=== PATIENT | female | born 2000 | race Two or more races ===

== ENCOUNTER 2024-12-19 18:53 | Emergency (ER) | payer OTHER, SELFPAY ==
[2024-12-19 19:22] VITALS: BP 137/83; PULSE 125; RESP 20; TEMP 38; O2SAT 96
--- NOTE | 2024-12-19 19:31 | PD.EDRME ---
Rapid Medical Screening Exam RME Arrival date/time: 12/19/24 18:53 24 year old female present to ED for c/o n/v for 2 days I have greeted and performed a focused initial assessment of this patient. A comprehensive ED assessment and evaluation of the patient, analysis of all test results, and completion of the medical decision making process will be conducted by additional ED providers. Chief Complaint: Flu Like Symptoms Time Seen by Provider: 12/19/24 19:03 Vital signs: Vital Signs Temperature 100.4 F 12/19/24 19:22 Pulse Rate 125 H 12/19/24 19:22 Respiratory Rate 20 12/19/24 19:22 Blood Pressure 137/83 H 12/19/24 19:22 Pulse Oximetry (%) 96 12/19/24 19:22 Oxygen Delivery Method Room Air 12/19/24 19:22
[2024-12-19 19:45] VITALS: TEMP 38
[2024-12-19] MEDS: ACETAMINOPHEN 500 MG TABLET 1000 MG PO (19:45)
[2024-12-19] MEDS: ONDANSETRON ODT 4 MG TABRAP PO (19:45)
[2024-12-19 20:08] LABS: Basophils % (Auto) 0 % (0-2.5); Eosinophils % (Auto) 0 % (0-10); Hematocrit 38.3 % (36.0-46.0); Hemoglobin 12.8 g/dL (12.0-16.0); Immature Granulocytes % (Auto) 0 % (0-0); Immature Granulocytes Auto 0.02 Thou/mm3 (0.00-0.00); Lymphocytes # (Auto) 0.8 Thou/mm3 (1.0-4.8); Lymphocytes % (Auto) 13 % (10-50); Mean Corpuscular HGB Conc 33.4 g/dl (31.0-37.0); Mean Corpuscular Hemoglobin 28.1 pg (25.0-35.0); Mean Corpuscular Volume 84 fL (80-100); Monocytes # (Auto) 0.4 Thou/mm3 (0.0-0.8); Monocytes % (Auto) 6 % (0-12); Neutrophils # (Auto) 5.3 Thou/mm3 (1.8-7.7); Neutrophils % (Auto) 81 % (37-80); Nucleated Red Blood Cell % 0 /100 WBC (0); Platelet Count 229 Thou/mm3 (140-440); RDW Standard Deviation 43.6 fL (36.4-46.3); Red Blood Count 4.56 Miln/mm3 (4.00-5.20); White Blood Count 6.5 Thou/mm3 (3.6-11.0)
[2024-12-19] MEDS: SODIUM CHLORIDE 0.9% 1000 ML 1,000 ML 999 ML IV (20:20)
[2024-12-19 20:28] LABS: Alanine Aminotransferase 23 U/L (10-49); Albumin, Serum 4.7 gm/dL (3.5-5.0); Albumin/Globulin Ratio 1.8 (1.2-2.2); Alkaline Phosphatase 85 U/L (46-116); Anion Gap 8 (7-16); Aspartate Amino Transferase 22 U/L (0-34); BUN/Creatinine Ratio 8 Ratio (12-20); Bilirubin,Total 0.7 mg/dL (0.3-1.2); Blood Urea Nitrogen 6 mg/dL (9-23); Calcium 8.7 mg/dL (8.3-10.6); Calcium (Corrected) 8.7 mg/dL (8.5-10.1); Carbon Dioxide 25.5 mMol/L (20.0-31.0); Chloride 103 mMol/L (98-107); Creatinine (Component) 0.8 mg/dL (0.6-1.3); Globulin 2.6 gm/dL (2.3-3.5); Glucose 101 mg/dL (74-106); Lipase 31 U/L (12-53); Osmolality,Calculated 269 (275-295); Potassium 3.5 mMol/L (3.4-5.1); Sodium 136 mMol/L (136-145); Total Protein 7.3 gm/dL (5.7-8.2); eGFR > 60 See Note
[2024-12-19 20:46] LABS: Collection Type, Urine Voided
[2024-12-19 20:55] LABS: Bilirubin,Urine Negative (Negative); Blood,Urine Negative (Negative); Clarity,Urine Clear (Clear/Hazy); Color,Urine Lt-Yellow (Lt Yel-Yel); Glucose, Urine Negative (Negative); Ketones,Urine Negative (Negative); Leukocyte Esterase,Urine Negative (Negative); Nitrite,Urine Negative (Negative); PH,Urine 7.5 (5.0-7.0); Protein,Urine Negative (Neg - Trace); RBC,Urine 1 /hpf (0-3); Specific Gravity,Urine 1.009 (1.001-1.035); Squamous Epithelial Cell,Urine 5 /hpf (0-5); Urobilinogen,Urine Negative mg/dL (0.0-1.0); WBC,Urine 1 /hpf (0-5)
--- NOTE | 2024-12-19 20:56 | EDNOTE_ITS ---
ED Abdominal Pain RME/HPI General Chief Complaint: Flu Like Symptoms Stated complaint: V/D X2 DAYS FEVER, MUSCLE ACHES Time seen by provider: 12/19/24 19:03 Arrival date/time: 12/19/24 18:53 24 year old female present to emergency room with c/o of nausea,vomiting abdominal cramping for 2days. patient report possible food poisoning. LOCATION: generalized periumbical abdominal pain SEVERITY: Symptoms are described as being severe with limitations on activities of daily living QUALITY: Symptoms are described as being cramping CONTEXT: The patient is unable to identify any inciting events. DURATION/TIMING: The symptoms started approximately 2 day ago and have been constant this then, and have been progressive getting worse. ASSOCIATED SYMPTOMS: The patient is unable to identify any other associated symptoms. MODIFYING FACTORS: The patient is unable to identify any alleviating or aggravating symptoms. PERTINENT ROS: reports emesis is nonbloody, diarrhea is nonbloody, no recent foreign travel, no recent ingestion of raw seafood or meat, no head trauma, no headache, no chest pain, no orthostatis symptoms, denies any focal abdominal pain, denies any toxicological ingestions REVIEW OF SYSTEMS: See History of Present Illness - with the exception of those mentioned in the history of present illness, all other systems reviewed and reported as negative GENERAL: In general the patient is awake, interactive, in an emergency department gurney. HEAD/EYES/EARS/NOSE/THROAT: normo-cephalic, atraumatic, mucus membranes are moist, anicteric, palpebral conjunctiva is pink, trachea is midline. CARDIOVASCULAR: regular rate and regular rhythm, no murmurs, heart sounds are not distant, strong pulses in all four extremities that are equal and symmetric bilateral upper and lower extremities, normal capillary refill. CHEST/PULMONARY: normal chest rise and fall, good air movement, clear to auscultation bilaterally, normal inspiratory to expiratory ratios without evidence of respiratory distress. NECK: No midline/Paraspinal tenderness, no step off ROM/Strenght intact No Kernig and bruzinski sign. No trauma ABDOMEN: soft, not tender, no masses appreciated BACK: normal range of motion without pain. NEUROLOGICAL: cranio-facial features are symmetric, moves all four extremities equally without obvious limitations or weakness. EXTREMITY: no tenderness to palpation over the long bones or large joints of the bilateral upper and lower extremities, no joint swelling, no joint erythema, no signs of trauma, no unilateral leg swelling and no peripheral edema. SKIN: warm, dry, well-perfused, no jaundice, no rash, no telangiectasias or petechia. PSYCH: calm, cooperative, no evidence of psychosis or agitation RME / HPI RME / HPI narrative: 12/19/24 18:53 24 year old female present to ED for c/o n/v for 2 days I have greeted and performed a focused initial assessment of this patient. A comprehensive ED assessment and evaluation of the patient, analysis of all test results, and completion of the medical decision making process will be conducted by additional ED providers. Related Data Previous Rx's ?Medication ?Instructions ?Recorded ondansetron 4 mg disintegrating 4 mg PO Q8H PRN nausea and 12/19/24 tablet vomiting #20 tabs Allergies Allergy/AdvReac Type Severity Reaction Status Date / Time Penicillins Allergy Rash Verified 12/19/24 18:56 Course Course Course Narrative: Patient presenting with nausea, vomiting, and diarrhea.? Vital signs were reviewed.? Patient afebrile.? Abdominal exam is benign.? No evidence of acute surgical emergency or infection requiring antibiotics.? I considered biliary disease, bowel obstruction, colitis, mesenteric ischemia, appendicitis, urinary tract infection, infectious diarrhea, however, these are less likely given the history and exam.? While in ED patient was provided with IV fluids, zofran , at which point patient stated that their symptoms had improved. Provided with prescription for zofran? Advised to continue Ibuprofen and Tylenol at home as needed for pain/fever. Patient is to followup with primary physician if symptoms continue. Advised to return to the ER if concern for inability to tolerate PO intake, dehydration, or other concerns. Plan:?? Discharge from ETC Ibuprofen/Acetaminophen for Pain/Fever Prescription for ondansetron for nausea. Pt was advised on supportive therapies, including increasing dietary fiber, eating smaller meals, refrain from eating copious amounts of irritating foods (fatty foods, milk products, chocolate, and caffeine), maintaining a food diary, advancing fluids as tolerated, refraining from EtOH consumption, decreasing stress, and increasing exercise. Maintain Fluid Intake: Pedialyte/Gatorade, Juice, Non-caffeinated Pop (Sprite) Patient to follow up with PCP or in ER should symptoms worsen or not improve. Patient verbally expressed understanding and all questions were addressed. Quality Measures none Orders Category Date Time Status Bedside COVID-19 Antigen Test NOW Care 12/19/24 19:30 Active Bedside Influenza A&B Antigen Test NOW Care 12/19/24 19:30 Completed IV [Insert IV] STAT Care 12/19/24 19:30 Active CBC Stat Lab 12/19/24 19:55 Completed CMP [Comprehensive Metabolic Panel] Stat Lab 12/19/24 19:55 Completed HCG,Qualitative Serum Stat Lab 12/19/24 19:55 Completed Lipase Stat Lab 12/19/24 19:55 Completed UA [Urinalysis] Stat Lab 12/19/24 20:26 Completed Acetaminophen Tab [Tylenol ES Tab] Med 12/19/24 19:30 Discontinued 1,000 mg PO X1 ONE Ondansetron Odt [Zofran Odt] Med 12/19/24 19:30 Discontinued 4 mg PO X1 ONE Sodium Chloride 0.9% 1000 ml [Ns] 1,000 ml Med 12/19/24 19:31 Discontinued IV 999 mls/hr Vital Signs Vital signs: Vital Signs Temperature 100.4 F 12/19/24 19:22 Pulse Rate 125 H 12/19/24 19:22 Respiratory Rate 20 12/19/24 19:22 Blood Pressure 137/83 H 12/19/24 19:22 Pulse Oximetry (%) 96 12/19/24 19:22 Oxygen Delivery Method Room Air 12/19/24 19:22 Abdominal Pain MDM Patient data External records reviewed:: [facility] previous records Clinical information provided by:: patient Social determinants that could affect healthcare access:: none Patient has the following chronic illnesses:: n/a How is presenting disease/condition affected by chronic disease/condition?: no chronic disease Evaluation data The following diagnostics were reviewed and interpreted by me:: lab results Lab and/or radiology exams considered but not ordered:: n/a Interpretation Summary: cbc/cmp/urine, hcg, covid.flu negative Medications / Prescriptions Medications or Prescriptions considered but not ordered:: n/a Medication administrations:: Medication Administration History Discontinued Medications Acetaminophen (Acetaminophen 500 Mg Tablet) 1,000 mg PO X1 ONE Stop: 12/19/24 19:31 Last Admin: 12/19/24 19:45 Dose: 1,000 mg Documented By: Sodium Chloride (Ns) 1,000 mls @ 999 mls/hr IV .Q1H1M ONE Stop: 12/19/24 20:31 Last Infusion: 12/19/24 21:29 Dose: Infused Documented By: Admin: 12/19/24 20:20 Dose: 999 mls/hr Documented By: Ondansetron HCl (Ondansetron Odt 4 Mg Tabrap) 4 mg PO X1 ONE; Protocol Stop: 12/19/24 19:31 Last Admin: 12/19/24 19:45 Dose: 4 mg Documented By: as stated above Consultations Consultation(s) initiated? (list below): No Diagnosis Differential diagnosis abdominal pain: abdominal pain, calculus of kidney, gastroenteritis and other (UTI, covid/flu ) Most likely diagnosis given after review of the tests above:: gastroenteritis Admission Indicated Admission indicated?: not indicated Admission Request Was there a request for admission?: No Disposition Plan Disposition Plan: Discharge Discharge Attestation Discharge Attestation: The patient and all family members were given an opportunity to ask questions and understood the discharge instructions. Discharge instructions specifically effects, indications for sooner follow up or return to the emergency department, and the expected course of current diagnosis. Patient condition: Stable Discharge Plan Plan Patient Disposition: HOME (Self Care) Prescriptions/Referrals Prescriptions/Med Rec: New ondansetron 4 mg tablet,disintegrating 4 mg PO Q8H PRN (Reason: nausea and vomiting) Qty: 20 0RF Referrals: No Primary/Family,Physician [Primary Care Provider] - In 1 week Problem List Clinical Impression: Gastroenteritis Patient/Caregiver Discharge Instructions Education Materials: ED Gastroenteritis, Noninfectious Print Language: Libyan Stand Alone Forms: [facility] Award Info., Patient Portal Info Letter
[2024-12-19 21:28] VITALS: TEMP 36.9
[2024-12-19 22:02] LABS: HCG,Qualitative Serum Negative
== END 2024-12-19 21:20 | disposition home or self-care (01) ==
PROVIDERS: Physician Assistant; Emergency Provider Emergency Medicine
DX: K52.9 Noninfective gastroenteritis and colitis, unspecified (principal)
CPT/HCPCS: 36415; 80053; 81001; 83690; 84703; 85025; 87400; 87811; 96360; 99284; J7030; Q0162; A9270

== ENCOUNTER → 2025-04-15 | Outpatient (CLI) | payer OTHER, SELFPAY ==
--- NOTE | 2025-04-15 14:30 | XR_ITS ---
Examination: Abdomen sonogram, complete Date and time of exam: April 15, 2025 1425 hours INDICATIONS: Diarrhea beginning 3 months ago. Technique: Multiple real-time grayscale transabdominal sonographic images of the abdomen have been obtained. Findings: Normal gallbladder. Normal common bile duct 0.3 cm Pancreatic head 2.1 cm Aorta not enlarged. Liver 15.7 cm smooth contour no focal liver lesions Normal hepatopedal portal venous flow Patent IVC Right kidney 9.9 cm cortex 1.9 cm Left kidney 11.9 cm cortex 2.0 cm Spleen 11.9 cm IMPRESSION: Negative study
== END | disposition home or self-care (01) ==
PROVIDERS: PCP Nurse Practitioner Family; Referring Provider Nurse Practitioner Family; Visit Provider Nurse Practitioner Family
DX: R10.9 Unspecified abdominal pain (principal)
CPT/HCPCS: 76700